=== PATIENT | male | born 1990 | race Caucasian/White ===

== ENCOUNTER 2018-10-13 10:33 | Emergency (ER) | payer OTHER ==
[2018-10-13] MEDS ORDERED: TRIAMCINOLONE 40 MG/ML VIAL SUBQ STA (12:06)
[2018-10-13] MEDS ORDERED: BUFFERED LIDOCAINE 10 ML SYRINGE SUBQ STA (12:06)
--- NOTE | 2018-10-13 12:08 | XRAY Report ---
Reason: pain/swelling Procedure Date: 10/13/2018 Accession Number: [id number] / [id number] Procedure: XR - Elbow 3 View LT CPT Code: FULL RESULT: EXAM: LEFT ELBOW RADIOGRAPHY EXAM DATE: 10/13/2018 12:03 PM. CLINICAL HISTORY: Pain/swelling. COMPARISON: None. TECHNIQUE: 3 views. FINDINGS: Bones: Normal. No fractures or bone lesions. Joints: Normal. No effusion. No subluxation. Soft Tissues: Normal. No soft tissue swelling. IMPRESSION: Normal elbow radiography. [facility]
--- NOTE | 2018-10-13 12:08 | ED Physician Documentation ---
PD HPI UPPER EXT INJURY - Stated complaint Stated Complaint: ELBOW SWELLING - Chief complaint Chief Complaint: Trauma Ext - History obtained from History obtained from: Patient - History of Present Illness Location: Left (He has a history of bursitis in the elbow on the left. He did well after the last visit here a few months ago where he was drained and Kenalog was injected. That was until he had to do planks on his elbow a couple of weeks ago and it recurred. It is painless at rest there is no warmth or redness and no fever.) Review of Systems Constitutional: denies: Fever, Chills Cardiac: denies: Chest pain / pressure, Palpitations Respiratory: denies: Dyspnea, Cough PD PAST MEDICAL HISTORY - Past Surgical History Past Surgical History: No - Present Medications Home Medications: Ambulatory Orders Medication Instructions Recorded Confirmed No Known Home Medications 07/20/18 10/13/18 - Allergies Allergies/Adverse Reactions: Allergies Allergy/AdvReac Type Severity Reaction Status Date / Time No Known Drug Allergies Allergy Verified 10/13/18 10:38 - Social History Does the pt smoke?: Yes Smoking Status: Current every day smoker Does the pt have substance abuse?: No - Immunizations Immunizations are current?: Yes PD ED PE NORMAL - Vitals Vital signs reviewed: Yes - General General: Alert and oriented X 3, No acute distress - Derm Derm: Normal color, Warm and dry, No rash - Extremities Extremities: Other (There is a fluid bursitis of the left elbow without tenderness, redness, warmth, or limited range of motion.) - Neuro Neuro: Alert and oriented X 3, Normal speech Verbal: Oriented - Psych Psych: Normal affect Results - Vitals Vitals: Vital Signs - 24 hr 10/13/18 10/13/18 10:36 12:30 Temperature 36.7 C Heart Rate 82 80 Respiratory 18 16 Rate Blood Pressure 166/89 H 158/88 H O2 Saturation 100 100 Oxygen O2 Source Room air - Labs Labs: Laboratory Tests 10/13/18 12:25 Fluid Source SYNOVIAL Fluid Color YELLOW Fluid Clarity HAZY Fluid WBC 890 Fluid RBC 91200 Fluid Neutrophils % 7 Fluid Lymphocytes % 26 Fluid Monocytes % 24 Fluid Macrophages % 43 Fld Mesothelial Cell % Not Reportable - Rads (name of study) L elBOW xr Radiology: EMP read contemporaneously (normal) Procedures - General procedure General procedure: After discussion of risks and benefits was obtained, the left elbow was prepped twice with ChloraPrep and locally infiltrated with buffered lidocaine, then an 18-gauge needle was used to extract 20 mL of serous and slightly bloody fluid which was sent for culture. 40 mg of Kenalog was injected in the bursa. Departure - Departure Disposition: 01 Home, Self Care Clinical Impression: Olecranon bursitis of left elbow Condition: Good Record reviewed to determine appropriate education?: Yes Instructions: ED Bursitis Elbow Olecranon Comments: [place], seek referral for orthopedic evaluation for same. Your blood pressure was elevated today on check into the emergency department. This does not mean that you have hypertension, it is a common phenomenon to come to the emergency department and have elevated blood pressure. I recommend that you see your primary care physician within the week to have it rechecked when you are feeling better. Forms: Activity restrictions Discharge Date/Time: 10/13/18 12:30
[2018-10-13 12:32] VITALS: BP 158/88
[2018-10-13 12:45] LABS: CC,BF RBC 10236 /mm^3
[2018-10-13 12:47] LABS: BF COLOR YELLOW; BF SOURCE SYNOVIAL
[2018-10-13 13:26] LABS: LYMPHOCYTES %,BODY FLUID 26; MONOCYTES %,BODY FLUID 24 %
[2018-10-13 13:28] LABS: MACROPHAGES %,BODY FLUID 43 %
== END 2018-10-13 12:30 | disposition home or self-care (01) ==
LOC: ED 10:33
DX: M70.22 Olecranon bursitis, left elbow (principal); R03.0 Elevated blood-pressure reading, without diagnosis of hypertension
CPT/HCPCS: 20605; 87070; 87205; 89051; 99282; 99283